=== PATIENT | male | born 1955 | race Caucasian/White ===

== ENCOUNTER → 2017-09-16 08:21 | Outpatient (CLI) | payer OTHER, SELFPAY ==
--- NOTE | 2017-09-16 08:22 | RAD_ITS ---
STUDY: X-RAY - ABDOMEN/PELVIS REASON FOR EXAM: Male, 62 years old. History of kidney stones. TECHNIQUE: Two AP supine views of the abdomen and pelvis. COMPARISON: Comparison is made with prior study dated August 01, 2017. FINDINGS: There is a moderate amount of colonic fecal material. The left-sided double-J stent catheter as been removed. Multiple calculi are seen in the left kidney. The previously seen calculus in the upper pole has decreased in size. There are calcified phleboliths in the pelvis. Normal visualized osseous structures. RAD/Abdomen Single View IMPRESSION: Residual left intrarenal calculi. Removal of the left double-J stent catheter. Electronically Signed: Usman Chávez MD at 11:10 EST Tel [phone], Service support ,
--- NOTE | 2017-09-16 09:20 | CT_ITS ---
STUDY: CT ABDOMEN AND PELVIS WITHOUT CONTRAST REASON FOR EXAM: Male, 62 years old. Left-sided flank pain and swelling. Recent lithotripsy. RADIATION DOSAGE (If Supplied By Facility): CTDIvol = ( 23.24 ) mGy, DLP = ( 1312.21 ) mGycm TECHNIQUE: Transaxial images were obtained from the dome of the diaphragm to the symphysis pubis without oral contrast, and without intravenous contrast. Sagittal and coronal images were reconstructed. Individualized dose optimization techniques were used for this CT. COMPARISON: None. FINDINGS: Minimal degree of increased markings in the posterior medial segment of the right lower lobe suggestive of scarring. There is a 6.8 mm noncalcified pleural-based nodule in the lateral aspect of the right middle lobe as seen on axial image #12. This may represent a focal area of scarring. Follow-up is recommended. There is also evidence of a 6 mm noncalcified nodule in the anterior portion of the right middle lobe as seen on axial image #1. Coronary artery calcification. There is decreased attenuation of the liver consistent with steatosis. Normal gallbladder and extrahepatic biliary system. Normal spleen. Normal pancreas. Nodular enlargement of the left adrenal gland suggestive of a adrenal adenoma. Punctate calcification in the lower pole calyx of the right kidney. Multiple left intrarenal calculi are seen. The largest measures 9 mm and is in the mid anterior pole. Mild degree of left hydronephrosis. There is evidence of a left periaortic ureteric stranding with mild dilatation of the left ureter worse in its proximal portion. No calcification is seen overlying the course of the ureter. There is a small hiatal hernia. Normal small intestine. There are multiple colonic diverticula consistent with diverticulosis. The appendix is visualized and appears normal. There is diffuse atherosclerotic calcification of the abdominal aorta, without a demonstrated aneurysm. Normal inferior vena cava. Normal retroperitoneum. Normal urinary bladder. There is a umbilical hernia containing fat. The neck of the hernia measures 1.7 cm. There are diffuse degenerative changes of the visualized lumbar spine. CT/Abdomen/Pelvis without Cont IMPRESSION: Multiple left intrarenal calculi. Mild left hydronephrosis and proximal left hydroureter with the moderate degree of perinephric stranding in the proximal portion of the ureter. No obstructive uropathy is seen at this time. Subcentimeters noncalcified nodules at the right lung base as described. Six-month follow-up is recommended. Electronically Signed: Usman Chávez MD at 9:46 EST Tel [phone], Service support ,
== END ==
PROVIDERS: Family Provider Specialist; PCP Specialist; Visit Provider Urology
DX: N20.0 Calculus of kidney (principal)
CPT/HCPCS: 74018; 74176

== ENCOUNTER → 2017-09-24 16:59 | Outpatient (CLI) | payer OTHER, SELFPAY ==
--- NOTE | 2017-09-24 17:02 | CT_ITS ---
STUDY: CT CHEST WITHOUT CONTRAST REASON FOR EXAM: Male, 62 years old. Right-sided lung nodule seen on recent CT scan of the abdomen and pelvis. RADIATION DOSAGE (If Supplied By Facility): CTDIvol = ( 20.72 ) mGy, DLP = ( 778.43 ) mGycm TECHNIQUE: Transaxial imaging was performed without the administration of intravenous contrast material. Individualized dose optimization techniques were used for this CT. COMPARISON: Correlation is made with the recent CT scan of the abdomen and pelvis of 09/16/2017. FINDINGS: There again is a 7 mm noncalcified nodule in the right middle lobe seen on image 132 series 4 unchanged since the prior examination. There is a 2 mm pleural-based nodule in the right lung apex seen on image 33 series 4. There is another small pleural-based measuring about 6 mm again unchanged. There is minimal stranding/scarring in the medial segment of the right lower lobe. No focal infiltrate is seen. Nodule in the right middle lobe seen on image 155 series 4 There is no demonstrated pleural effusions. Normal heart and pericardium. There are calcifications of the coronary arteries. There are few mediastinal nodes in the aortopulmonic window, the largest measures about 1.2 cm however it contains central fat. Additional subcentimeter nodes are seen. There is no evidence of adenopathy on this noncontrast examination. Normal hilar regions. Normal unenhanced pulmonary arteries. There is atherosclerotic calcification of the aortic arch and descending thoracic aorta. There are multi-level degenerative changes of the thoracic spine. The visualized portions of the upper abdomen demonstrate again mild left hydronephrosis. There are partially visualized left renal calcifications/nonobstructing stones. CT/Chest without Contrast IMPRESSION: Few small right middle and upper lobes pulmonary nodules as described above unchanged since the prior examination. In the absence of clinical history of cancer, follow-up examination in 6 months is recommended. No focal infiltrate is seen. Nonobstructing left renal stones and mild left hydronephrosis unchanged. Electronically Signed: Seferino Snider MD at 1:32 EST Tel , Service support ,
== END ==
PROVIDERS: Family Provider Specialist; PCP Specialist; Visit Provider Urology
DX: R91.1 Solitary pulmonary nodule (principal)
CPT/HCPCS: 71250

== ENCOUNTER → 2017-12-23 13:28 | Outpatient (CLI) | payer OTHER, SELFPAY ==
--- NOTE | 2017-12-23 13:31 | CT_ITS ---
STUDY: CT CHEST WITHOUT CONTRAST REASON FOR EXAM: Male, 62 years old. 3 month follow up lung nodule. RADIATION DOSAGE (If Supplied By Facility): CTDIvol = ( 19.84 ) mGy, DLP = ( 773.51 ) mGycm TECHNIQUE: Transaxial imaging was performed without the administration of intravenous contrast material. Multiplanar coronal and sagittal images were reformatted. Individualized dose optimization techniques were used for this CT. COMPARISON: CT of the chest, September 26, 2017. FINDINGS: The lungs are well expanded. There is a 5 mm soft tissue nodule in the anterior aspect of the right middle lobe just below the horizontal fissure. This is best seen on image 68 of series 4. Also in the right middle lobe is a 5 x 4 mm pleural-based soft tissue density best seen on image 79. No masses are seen. There is no acute infiltrate. There is no demonstrated pleural abnormality. Normal heart and pericardium. There are calcifications of the coronary arteries. There are numerous nonspecific subcentimeter mediastinal lymph nodes. Normal hilar regions. Normal unenhanced pulmonary arteries. There is atherosclerotic calcification of the aortic arch with tortuosity and elongation of the aortic arch and descending thoracic aorta. There are multi-level degenerative changes of the thoracic spine. There is a 2 mm calcification in the upper pole of left kidney. The visualized abdomen is otherwise unremarkable. CT/Chest without Contrast IMPRESSION: 1. Stable right middle lobe nodules. According to revised Fleischner criteria, a CT one year from the previous exam should be considered. 2. Left renal calculus. 3. Atherosclerotic changes of coronary arteries and aorta. 4. No major interval change. Electronically Signed: Gilson Vega DO at 17:04 EDT Tel [phone], Service support ,
== END ==
PROVIDERS: Family Provider Family Medicine; PCP Family Medicine; Visit Provider Internal Medicine Pulmonary Disease
DX: R91.8 Other nonspecific abnormal finding of lung field (principal)
CPT/HCPCS: 71250

== ENCOUNTER → 2020-04-06 15:42 | Outpatient (CLI) | payer OTHER, SELFPAY ==
--- NOTE | 2020-04-06 15:50 | CT_ITS ---
STUDY: CT CHEST WITHOUT CONTRAST REASON FOR EXAM: Male, 64 years old. PULMONARY NODULE RADIATION DOSAGE (If Supplied By Facility): CTDIvol = ( 18.78 ) mGy, DLP = ( 704.03 ) mGycm TECHNIQUE: Transaxial imaging was performed without the administration of intravenous contrast material. Individualized dose optimization techniques were used for this CT. COMPARISON: CT of the chest 12/23/2017 FINDINGS: There is minor interstitial thickening in the right lower lobe. There is a nodular density in the right middle lobe measuring approximately 6 mm in size. Is a second smaller pleural-based density in the right middle lobe measuring approximately 4 to 5 mm in size. There is no demonstrated pleural abnormality. The heart is normal size and there is multivessel coronary artery calcification Normal mediastinum. Normal hilar regions. Normal unenhanced pulmonary arteries. For cirrhotic changes of the aorta without evidence for aneurysm. Dorsal spine demonstrates degenerative changes There is no demonstrated abnormality of the visualized upper abdomen. The nodules are stable in size when compared with prior exam. CT/Chest without Contrast IMPRESSION: Stable appearance to subcentimeter nodules in the right middle lobe since previous exam. Recommend follow-up imaging as per FLEISCHNER Society criteria if clinically warranted ASHD.. No acute abnormalities. Electronically Signed: Preet Lawton MD at 22:47 EDT , Service support ,
== END ==
PROVIDERS: PCP Family Medicine; Referring Provider Family Medicine; Visit Provider Family Medicine
DX: R91.1 Solitary pulmonary nodule (principal)
CPT/HCPCS: 71250

== ENCOUNTER 2021-11-15 21:15 | Inpatient (IN) | payer OTHER, MEDICARE, SELFPAY ==
[2021-11-15 21:16] VITALS: BP 199/87; PULSE 84; RESP 18; TEMP 36.6; O2SAT 98; BMI 33.9
--- NOTE | 2021-11-15 21:27 | EKG12_ITS ---
Test Reason : DYSRHYTHMIA Blood Pressure : / mmHG Vent. Rate : 069 BPM Atrial Rate : 069 BPM P-R Int : 164 ms QRS Dur : 106 ms QT Int : 404 ms P-R-T Axes : 058 055 057 degrees QTc Int : 432 ms Normal sinus rhythm Normal ECG Confirmed by ERLINDA DENNISON, ALEKS ([id number]), photo editor RADHA ROSALES ([id number]) on 11/17/2021 2:15:05 PM Referred By: ARELIS Confirmed By:PARAMJIT COFFEY MD
[2021-11-15 21:44] VITALS: BMI 35.6
[2021-11-15 21:47] VITALS: BP 174/77; PULSE 72; RESP 19; O2SAT 99
--- NOTE | 2021-11-15 21:48 | RAD_ITS ---
STUDY: X-RAY CHEST REASON FOR EXAM: Male, 66 years old. altered mental status TECHNIQUE: 2 portable upright frontal views. COMPARISON: No comparison chest radiographs. Correlation is made with chest CT of 04/06/2020. FINDINGS: The lungs are clear and expanded. There is no demonstrated pleural abnormality. Heart size is upper normal. Normal pulmonary vasculature. Thoracic aorta is minimally elongated and calcific. Degenerative spurring noted in the lower cervical spine and thoracic spine. There is no demonstrated abnormality of the visualized soft tissue structures of the upper abdomen. RAD/Chest 1 View (Portable) IMPRESSION: No acute cardiopulmonary disease process identified. Electronically Signed: Joe Corona MD at 22:23 EDT ,
[2021-11-15 21:53] LABS: Bacteria 0 SEEN /hpf (None Seen); Mucous, Urine 0 SEEN /hpf (<or=2+); Red Blood Cells-Urine 0 SEEN /hpf (0-5); Squamous Epithelial Cells - UA 0 SEEN /hpf (0-5); White Blood Cells 0 SEEN /hpf (0-5)
[2021-11-15 21:54] LABS: Absolute Lymphocyte Count 2.52 X10^3/uL (0.83-4.51); Absolute Neutrophil Count 5.1 X10^3/uL (2.0-7.7); Basophil# 0.07 X10^3/uL; Basophil% 0.8 % (0-1); Eosinophil# 0.18 X10^3/uL; Eosinophils% 2.1 % (0-5); Hematocrit 48.2 % (40-54); Hemoglobin 16.3 g/dL (13.0-16.5); Lymphocyte # 2.52 X10^3/ul (0.83-4.51); Mean Corp Hgb Conc 33.8 g/dL (32-36); Mean Corpuscular Hgb 27.7 pg (27.0-32.0); Mean Platelet Vol. 10.8 fl (6.2-12.0); Monocyte# 0.54 X10^3/uL; Monocyte% 6.4 % (0-10); NRBC Flagged by Analyzer 0 % (0-5); Neutrophil # 5.07 X10^3/uL (2.7-7.7); Neutrophil % 60.5 % (47-70); Platelet Count 276 K/mm3 (150-450); RBC Distribution Width CV 14.7 % (11.6-14.6); RBC Distribution Width SD 43.9 fl (35.1-43.9); Red Blood Count 5.88 M/mm3 (4.6-6.2); White Blood Count 8.4 K/mm3 (4.4-11.0)
[2021-11-15 21:55] LABS: Bedside Glucose 300 mg/dL (74-106)
[2021-11-15 22:03] LABS: Color, Urine Yellow (Yellow); Glucose, Dipstick 1000 mg/dl (Normal); Ketone-Dipstick 5 mg/dl (Negative); Leukocyte Esterase-Dipstick Negative /ul (Negative); Nitrite-Dipstick Negative (Negative); Occult Blood-Urine Negative /ul (Negative); Protein-Dipstick Negative (Negative); Specific Gravity, Urine 1.015 (1.002-1.030); Urine Bilirubin Dipstick Negative (Negative); Urine Clarity Clear (Clear); Urine Urobilinogen Normal (Normal)
[2021-11-15 22:16] LABS: ALB/GLOB Ratio 0.9 RATIO (0.9-2.4); AST(SGOT) 32 U/L (15-37); Alanine Aminotransfer ALT/SGPT 41 U/L (16-61); Albumin, Serum 4.2 g/dL (3.2-5.0); Alkaline Phosphatase 72 U/L (45-117); Anion Gap 6 (5-15); BUN 26 mg/dL (7-18); BUN/Creat Ratio 17.9 RATIO (10-20); Calcium,Total 9.8 mg/dL (8.5-10.1); Chloride 104 mmol/L (98-107); Creatinine, Serum 1.45 mg/dL (0.70-1.30); EST Glomerular Filtration Rate 52 mL/min (>60); Est Glom Filt Rate - Afr Amer 63 mL/min (>60); Estimated Creatinine Clearance 55.75 ml/min; Globulin 4.7 g/dL (2.2-4.2); Glucose 295 mg/dL (74-106); Potassium 3.4 mmol/L (3.5-5.1); Protein, Total 8.9 g/dL (6.4-8.2); Sodium Level 137 mmol/L (136-145); Troponin-I HS 9 pg/mL (3.0-78.0)
--- NOTE | 2021-11-15 22:50 | CT_ITS ---
EXAM: CT HEAD WITHOUT INTRAVENOUS CONTRAST CLINICAL INDICATION: tia TECHNIQUE: Multiple axial images were obtained of the head without intravenous contrast. DLP: 829.85 mGy-cm and CTDI: 44.[address] exam was performed using one or more of the following dose reduction techniques: automated exposure control, adjustment of the mA and/or kV according to patient size, and/or use of iterative reconstruction technique. This report was created using [employer] report generation technology. COMPARISON: None. FINDINGS: BRAIN AND EXTRA-AXIAL SPACES: Minimal atrophy with minimal patchy chronic small vessel ischemic changes in the deep white matter tracts. There is a small old lacunar infarction within the left thalamus. No intra- or extra-axial hemorrhage. No intracranial mass or mass effect. Posterior fossa structures are unremarkable. No hydrocephalus. Basal cisterns are patent. BONES/JOINTS: Unremarkable. No discrete lytic or blastic abnormalities. VASCULATURE: Vascular calcification is present. Middle cerebral arteries are not hyperdense. LYMPH NODES: A 21 x 13 mm ovoid and slightly lobulated soft tissue nodule is seen within the right parotid gland. 2 adjacent soft tissue nodules measuring up to 13 mm in diameter are seen within the left parotid gland. These nodules are most likely due to enlarged intraparotid lymph nodes. SINUSES: Mild-moderate mucosal thickening noted within the left maxillary antrum, which is smaller than the right. Additional mucosal thickening noted within the anterior ethmoid air cells and extending into the inferior frontal sinuses. MASTOID AIR CELLS: Unremarkable. Clear. ORBITS: Visualized globes, extraocular muscles, optic nerves and retrobulbar fat appear unremarkable. CT/Brain/Head without Contrast IMPRESSION: Minimal atrophy. 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 No acute intracranial abnormality. Left maxillary, ethmoid and frontal sinus mucosal disease. Enlarged intraparotid lymph nodes noted bilaterally. Electronically Signed: Joe Corona MD at 0:27 EDT ,
--- NOTE | 2021-11-15 22:51 | EDS_ITS ---
HPI History of Present Illness Chief Complaint: Neuro S/Sx Narrative Narrative: 66-year-old male presenting with left-sided weakness of both his arm and his leg since Saturday. He reports that Saturday he could not walk. He reports possibly having difficulty talking. His family states he is slow to respond but not exactly having slurred speech. He states that on Saturday he could not stand up and walk at all and over the course of time has been able to ambulate more and more. He was able to ambulate into the ER. He denies chest pain or shortness of breath. He denies abdominal pain. He has nausea vomiting. Denies headache, visual changes. No neck pain. PFSH PFSH Medical History Anxiety Diabetes Hypertension Kidney stones OCD (obsessive compulsive disorder) On home oxygen therapy Smoker Home Medications amlodipine-benazepril [Lotrel 10-20 MG Capsule] 1 capsule PO DAILY 07/23/17 [History Last Taken 07/26/17 06:30] celecoxib 200 mg PO BID 07/23/17 [History Last Taken Unknown] clopidogrel 75 mg PO DAILY 07/23/17 [History Last Taken 07/21/17 07:00] fenofibric acid (choline) [Fenoglide] 135 mg PO DAILY 07/23/17 [History Last Taken Unknown] hydrochlorothiazide 25 mg PO DAILY 07/23/17 [History Last Taken Unknown] hydrocodone-acetaminophen [Stanwood 5-325 Tablet] 1 ea PO TID PRN 07/23/17 [History Last Taken Unknown] metformin 1,000 mg PO BIDCM 07/23/17 [History Last Taken Unknown] paroxetine HCl 20 mg PO DAILY 07/23/17 [History Last Taken Unknown] pregabalin [Lyrica] 100 mg PO TID 07/23/17 [History Last Taken Unknown] propranolol 60 mg PO BID 07/23/17 [History Last Taken 07/26/17 06:30] tramadol 100 mg PO DAILY 07/23/17 [History Last Taken Unknown] atorvastatin 80 mg PO DAILY 11/15/21 [History Last Taken Unknown] dapagliflozin [Farxiga] 10 mg PO DAILY 11/15/21 [History Last Taken Unknown] esomeprazole magnesium [Nexium 24HR] 20 mg PO DAILY 11/15/21 [History Last Taken Unknown] glimepiride 2 mg PO DAILY 11/15/21 [History Last Taken Unknown] sitagliptin [Januvia] 100 mg PO DAILY 11/15/21 [History Last Taken Unknown] Allergy/AdvReac Type Severity Reaction Status Date / Time aspirin AdvReac Vomiting Verified 11/15/21 21:18 Social History Smoking Status: Current every day smoker tobacco type: cigarettes ROS ROS ED Constitutional Constitutional ED: Denies chills or fever(s) Eyes Eyes: Denies blurry vision or change in vision ENT ENT ED: Denies rhinorrhea or sore throat Cardiovascular Cardiovascular: Denies chest pain or palpitations Respiratory/Chest Respiratory/Chest: Denies cough, dyspnea or sputum Gastrointestinal Gastrointestinal: Denies abdominal pain, nausea or vomiting Genitourinary Genitourinary ED: Denies dysuria or urinary frequency Musculoskeletal Musculoskeletal: Denies myalgias Integumentary Denies abscess or rash Neurologic Neurologic: Reports other Details: Left arm and leg weakness. Slow to answer questions. Psychiatric Psychiatric: Denies anxiety or depression EXAM Physical Exam Const Vital Signs: 11/15/21 21:16 11/15/21 21:47 11/15/21 23:35 Temperature 97.8 F Temperature Source Temporal Pulse Rate 84 72 80 Respiratory Rate 18 19 H 16 Blood Pressure 199/87 H 174/77 H 170/80 H Blood Pressure Mean 124 109 110 Pulse Ox 98 99 95 Oxygen Delivery Method Room Air Room Air Room Air Positive well nourished General Appearance ED: NAD HEENT Reports moist mucous membranes atraumatic Eyes PERRL and EOMs intact bilaterally Resp normal respiratory effort and clear to auscultation bilaterally Cardio Rate: regular rate Rhythm: regular rhythm GI normal to inspection, nondistended, normoactive bowel sounds Extremity normal to inspection General Extremety ED: Negative for deformity or tenderness General Extremity: Negative for deformity Neuro oriented x3 and CN's II-XII intact bilaterally Neuro Narrative: NIH stroke scale score of 0 Sensorium / Orientation: alert Psych mental status grossly normal Skin Lesions: no lesions Rashes: no rashes STROKE Vital Signs/Narrative: Vital Signs Temp Pulse Resp BP Pulse Ox 11/15/21 23:35 80 16 170/80 H 95 11/15/21 21:47 72 19 H 174/77 H 99 11/15/21 21:16 97.8 F 84 18 199/87 H 98 Inital Vital Signs reviewed: Yes MDM MDM MDM Narrative Medical decision making narrative: Patient presenting with concern of TIA. [id number] glucose is 300. On Saturday he was unable to ambulate secondary to weakness in the left arm and left leg. He states this is slowly improved. There is no reported slurred speech but the patient has been slow to answer questions. His NIH stroke scale score here is 0. He is outside of the window for any sort of TPA or otherwise. I got him out of bed and walked him down the hallway and he looked stable. He had reported earlier that he was dragging his foot last couple days. CBC is within normal limits. Creatinine is 1.45 without comparison. Glucose 295 without anion gap. Potassium slightly low 3.4. Urinalysis is negative. Chest x-ray on my interpretation is no acute cardiopulmonary process and radiologist agree. EKG on my interpretation shows a normal sinus rhythm ventricular to 69 bpm without sign of ischemic change or dysrhythmia. CT of the brain shows an old lacunar infarct in the left thalamus however patient states he does not have a history of stroke he only has had a TIA. Given his recent neurologic deficits that are resolving and no history of stroke with stroke found on CT I think he needs to be admitted for MRI. He is currently on Plavix. He states that he cannot take aspirin presently, short of breath. Impression: 1. Stroke like symptoms 2. Hyperglycemia Lab Data Attestation: I reviewed the patient's lab results. Labs: Laboratory Results - last 24 hr 11/15/21 11/15/21 11/15/21 21:30 21:30 21:39 WBC 8.4 RBC 5.88 Hgb 16.3 Hct 48.2 MCV 82.0 MCH 27.7 MCHC 33.8 RDW Std Deviation 43.9 RDW Coeff of [place] 14.7 H Plt Count 276 MPV 10.8 Immature Gran % (Auto) 0.200 Neut % (Auto) 60.5 Lymph % (Auto) 30.0 [place] % (Auto) 6.4 Eos % (Auto) 2.1 Baso % (Auto) 0.8 Absolute Neuts (auto) 5.1 Absolute Lymphs (auto) 2.52 Nucleated RBC % 0 Sodium 137 Potassium 3.4 L Chloride 104 Carbon Dioxide 27.0 Anion Gap 6 BUN 26 H Creatinine 1.45 H Estim Creat Clear Calc 55.75 Est GFR (MDRD) Af Amer 63 Est GFR (MDRD) Non-Af 52 L BUN/Creatinine Ratio 17.9 Glucose 295 H Calcium 9.8 Total Bilirubin 0.50 AST 32 ALT 41 Alkaline Phosphatase 72 Troponin I High Sens 9 Total Protein 8.9 H Albumin 4.2 Globulin 4.7 H Albumin/Globulin Ratio 0.9 Urine Color Yellow Urine Clarity Clear Urine pH 5.0 Ur Specific [place] 1.015 Urine Protein Negative Urine Glucose (UA) 1000 H Urine Ketones 5 H Urine Occult Blood Negative Urine Nitrite Negative Urine Bilirubin Negative Urine Urobilinogen Normal Ur Leukocyte Esterase Negative Urine RBC 0 SEEN Urine WBC 0 SEEN Ur Squamous Epith Cells 0 SEEN Urine Bacteria 0 SEEN Urine Mucus 0 SEEN POC Glucose 11/15/21 21:42 WBC RBC Hgb Hct MCV MCH MCHC RDW Std Deviation RDW Coeff of [place] Plt Count MPV Immature Gran % (Auto) Neut % (Auto) Lymph % (Auto) [place] % (Auto) Eos % (Auto) Baso % (Auto) Absolute Neuts (auto) Absolute Lymphs (auto) Nucleated RBC % Sodium Potassium Chloride Carbon Dioxide Anion Gap BUN Creatinine Estim Creat Clear Calc Est GFR (MDRD) Af Amer Est GFR (MDRD) Non-Af BUN/Creatinine Ratio Glucose Calcium Total Bilirubin AST ALT Alkaline Phosphatase Troponin I High Sens Total Protein Albumin Globulin Albumin/Globulin Ratio Urine Color Urine Clarity Urine pH Ur Specific [place] Urine Protein Urine Glucose (UA) Urine Ketones Urine Occult Blood Urine Nitrite Urine Bilirubin Urine Urobilinogen Ur Leukocyte Esterase Urine RBC Urine WBC Ur Squamous Epith Cells Urine Bacteria Urine Mucus POC Glucose 300 H Radiography Diagnostic Testing: Clinical Impression(s) from Imaging Studies Chest X-Ray 11/15/21 21:48 IMPRESSION: No acute cardiopulmonary disease process identified. Electronically Signed: Joe Corona MD at 22:23 EDT , Brain CT 11/15/21 22:50 IMPRESSION: Minimal atrophy. 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 No acute intracranial abnormality. Left maxillary, ethmoid and frontal sinus mucosal disease. Enlarged intraparotid lymph nodes noted bilaterally. Electronically Signed: Joe Corona MD at 0:27 EDT , Discharge Plan Triage Chief Complaint: Neuro S/Sx ED Provider: Nilesh Luis Dx/Rx/DC Orders Prescriptions: No Action celecoxib 200 MG capsule 200 mg PO BID RF: 0 hydrocodone-acetaminophen [Stan[place]] 1 EACH tablet 1 ea PO TID PRN (Reason: Pain) RF: 0 propranolol 60 MG tablet 60 mg PO BID RF: 0 clopidogrel 75 MG tablet 75 mg PO DAILY RF: 0 tramadol 50 MG tablet 100 mg PO DAILY RF: 0 paroxetine HCl 20 MG tablet 20 mg PO DAILY RF: 0 metformin 1,000 MG tablet 1,000 mg PO BIDCM RF: 0 hydrochlorothiazide 25 MG tablet 25 mg PO DAILY RF: 0 amlodipine-benazepril [Lotrel] 1 CAPSULE capsule 1 capsule PO DAILY RF: 0 pregabalin [Lyrica] 100 MG capsule 100 mg PO TID RF: 0 fenofibric acid (choline) [Trilipix] 135 MG capsule,delayed release(DR/EC) 135 mg PO DAILY RF: 0 atorvastatin 80 mg Tablet 80 mg PO DAILY RF: 0 esomeprazole magnesium [Nexium 24HR] 20 mg Capsule,Delayed Release(Dr/Ec) 20 mg PO DAILY RF: 0 Farxiga 10 mg Tablet 10 mg PO DAILY RF: 0 glimepiride 2 mg Tablet 2 mg PO DAILY RF: 0 Januvia 100 mg Tablet 100 mg PO DAILY RF: 0 Primary Care Provider: Trey Oreilly
[2021-11-15 23:35] VITALS: BP 170/80; PULSE 80; RESP 16; O2SAT 95
[2021-11-16] VITALS (20 sets, daily range): BP systolic 169–208; BP diastolic 64–97; PULSE 64–89; RESP 12–18; TEMP 36.4–36.8; O2SAT 95–98; BMI 34.0
--- NOTE | 2021-11-16 01:18 | PCM.HP.STD ---
[facility] - General General Date of Admission: 11/16/21 HPI Narrative SIDRA UMANZOR, is a 66 M with a significant for diabetes mellitus; anxiety disorder on propranolol; R knee pain on, Lyrica, tramadol and [place], and follows up with pain management; hypertension; OCD; and anxiety disorder who presents to emergency department with weakness of his left upper and left lower extremities. Also he has slowness in his speech. He does not have slurry speech. His symptoms started 2 days before presentation. And his symptoms has been improving. When his daughter became aware of patient's symptoms she convinced patient to come to the hospital. Emergent department doctor reported walking with patient and seen patient dragging his left foot. [facility] Medical History Anxiety Diabetes Hypertension Kidney stones OCD (obsessive compulsive disorder) On home oxygen therapy Smoker Home Medications amlodipine-benazepril [Lotrel 10-20 MG Capsule] 1 capsule PO DAILY 07/23/17 [History Last Taken 07/26/17 06:30] celecoxib 200 mg PO BID 07/23/17 [History Last Taken Unknown] clopidogrel 75 mg PO DAILY 07/23/17 [History Last Taken 07/21/17 07:00] fenofibric acid (choline) [Fenoglide] 135 mg PO DAILY 07/23/17 [History Last Taken Unknown] hydrochlorothiazide 25 mg PO DAILY 07/23/17 [History Last Taken Unknown] hydrocodone-acetaminophen [[place] 5-325 Tablet] 1 ea PO TID PRN 07/23/17 [History Last Taken Unknown] metformin 1,000 mg PO BIDCM 07/23/17 [History Last Taken Unknown] paroxetine HCl 20 mg PO DAILY 07/23/17 [History Last Taken Unknown] pregabalin [Lyrica] 100 mg PO TID 07/23/17 [History Last Taken Unknown] propranolol 60 mg PO BID 07/23/17 [History Last Taken 07/26/17 06:30] tramadol 100 mg PO DAILY 07/23/17 [History Last Taken Unknown] atorvastatin 80 mg PO DAILY 11/15/21 [History Last Taken Unknown] dapagliflozin [Farxiga] 10 mg PO DAILY 11/15/21 [History Last Taken Unknown] esomeprazole magnesium [Nexium 24HR] 20 mg PO DAILY 11/15/21 [History Last Taken Unknown] glimepiride 2 mg PO DAILY 11/15/21 [History Last Taken Unknown] sitagliptin [Januvia] 100 mg PO DAILY 11/15/21 [History Last Taken Unknown] Allergy/AdvReac Type Severity Reaction Status Date / Time aspirin AdvReac Vomiting Verified 11/15/21 21:18 Family History Other Heart disease Surgical History H/O hernia repair Social History Smoking Status: Current every day smoker tobacco type: cigarettes ROS ROS Narrative Constitutional: Denies fever, chills, fatigue, anorexia and change in weight Eyes: Denies blurry vision, change in eye color, change in vision, discharge from eye(s), double vision, erythema, eye pain, loss of vision or other HEENT: Denies abnormal hearing, dysphagia, ear pain, epistaxis, headache(s), hearing loss, nasal congestion, nasal discharge, post nasal drip, sinus pressure, sore throat or other Cardiovascular: Denies chest pain or palpitations. Denies dyspnea on exertion, orthopnea and paroxysmal nocturnal dyspnea Respiratory/Chest: Denies cough, excessive phlegm production, shortness of breath with exertion and wheezing Gastrointestinal: Denies abdominal pain, coffee ground emesis, constipation, diarrhea, dyspepsia, hematemesis, hematochezia, loose stools, melena, nausea, vomiting or other Genitourinary: Denies burning urination, difficulty urinating, dysuria, hematuria, nocturia, urinary frequency, urinary hesitancy, urinary incontinence, urinary urgency or other Musculoskeletal: Reports chronic right knee pain for which he takes tramadol, [place], Lyrica and follows up with pain management. Denies back pain, myalgias, neck pain or other Neurologic: Reports slow speech. Reports left upper extremity weakness. Reports left lower extremity weakness. Denies confusion, disequilibrium, dizziness, headache(s), numbness, paresthesias, seizure-like activity, seizures, syncope, tingling, tremor(s) or other Psychiatric: Reports anxiety. Denies homicidal ideation, suicidal ideation or other Endocrinology: Denies change in body appearance, cold intolerance, excessive sweating, heat intolerance, polydipsia, polyuria or other Hematologic/Lymphatic: Denies anemia, easy bleeding, easy bruising, lymphadenopathy or other Integumentary: Denies rashes Allergic/Immunologic: Denies rhinitis, hives, eczema, or other Vital Signs Vital Signs Vital Signs: 11/15/21 21:16 11/15/21 21:47 11/15/21 23:35 Temperature 97.8 F Temperature Source Temporal Pulse Rate 84 72 80 Respiratory Rate 18 19 H 16 Blood Pressure 199/87 H 174/77 H 170/80 H Blood Pressure Mean 124 109 110 Pulse Ox 98 99 95 Oxygen Delivery Method Room Air Room Air Room Air Weight Weight: 119.2 kg Body Mass Index (BMI) 35.6 Physical Exam Narrative Physical exam: General: Well-nourished, well-developed. Head: Normocephalic, atraumatic, no tenderness Eyes: Vision is grossly intact. EOMI ENT, no trauma, moist mucous membranes, no rhinorrhea Neck: Nontender, full range of motion, no spinal tenderness, deformities, step-off CVS: Regular rate and rhythm. S1-S2 present. No murmur, gallop or rub. Respiratory : clear to auscultation bilaterally, chest wall nontender, no wheezing Abdomen: Soft, nontender, nondistended, normal bowel sounds, no masses : Deferred Back: Nontender, no CVA tenderness, no midline spinal tenderness, deformities, step-offs Extremities: Nontender full range of motion, no trauma Skin: Normal color, no trauma, abrasions Neuro: Alert, oriented, cranial nerves II through XII grossly intact except patient does not keep his eyes straight to check pupillary reflex and accommodation. Facial droop to the left side. Strength in left upper extremity and left lower extremity 4 out of 5. Strength in right upper and right lower extremity 5 out of 5. No dysmetria with [id number]-gw-[id number] test and rvgs-gu-[id number] test. No hyperreflexia throughout. Psychiatry: Normal mood. Normal affect. Not depressed. Not anxious. Results Lab / Micro Data Result Diagrams: 11/15/21 21:30 11/15/21 21:30 Labs: Laboratory Results - last 24 hr 11/15/21 21:30: WBC 8.4, RBC 5.88, Hgb 16.3, Hct 48.2, MCV 82.0, MCH 27.7, MCHC 33.8, RDW Std Deviation 43.9, RDW Coeff of [place] 14.7 H, Plt Count 276, MPV 10.8, Immature Gran % (Auto) 0.200, Neut % (Auto) 60.5, Lymph % (Auto) 30.0, Glades % (Auto) 6.4, Eos % (Auto) 2.1, Baso % (Auto) 0.8, Absolute Neuts (auto) 5.1, Absolute Lymphs (auto) 2.52, Nucleated RBC % 0 11/15/21 21:30: Sodium 137, Potassium 3.4 L, Chloride 104, Carbon Dioxide 27.0, Anion Gap 6, BUN 26 H, Creatinine 1.45 H, Estim Creat Clear Calc 55.75, Est GFR (MDRD) Af Amer 63, Est GFR (MDRD) Non-Af 52 L, BUN/Creatinine Ratio 17.9, Glucose 295 H, Calcium 9.8, Total Bilirubin 0.50, AST 32, ALT 41, Alkaline Phosphatase 72, Troponin I High Sens 9, Total Protein 8.9 H, Albumin 4.2, Globulin 4.7 H, Albumin/Globulin Ratio 0.9 11/15/21 21:39: Urine Color Yellow, Urine Clarity Clear, Urine pH 5.0, Ur Specific [place] 1.015, Urine Protein Negative, Urine Glucose (UA) 1000 H, Urine Ketones 5 H, Urine Occult Blood Negative, Urine Nitrite Negative, Urine Bilirubin Negative, Urine Urobilinogen Normal, Ur Leukocyte Esterase Negative, Urine RBC 0 SEEN, Urine WBC 0 SEEN, Ur Squamous Epith Cells 0 SEEN, Urine Bacteria 0 SEEN, Urine Mucus 0 SEEN 11/15/21 21:42: POC Glucose 300 H Radiology Impression Chest X-Ray 11/15/21 21:48 IMPRESSION: No acute cardiopulmonary disease process identified. Electronically Signed: Joe Corona MD at 22:23 EDT , Brain CT 11/15/21 22:50 IMPRESSION: Minimal atrophy. 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 No acute intracranial abnormality. Left maxillary, ethmoid and frontal sinus mucosal disease. Enlarged intraparotid lymph nodes noted bilaterally. Electronically Signed: Joe Corona MD at 0:27 EDT , Assessment & Plan Assessment/Plan (1) Stroke-like symptoms: PLAN: Strokelike symptoms serial NINDS NIH Scale ordered CT head was visualized and independently interpreted and agree with radiologist impression above. Lipid profile and A1c ordered. Physical therapy, occupational therapy and speech therapy to work with patient. N.p.o. until bedside swallow eval. Patient reports allergy to aspirin. Reportedly he has hives and difficulty breathing with aspirin. Patient is on Plavix. Patient is unsure why he is on Plavix but daughter who was at the bedside on presentation at the ED thinks that Plavix was started because of previous history of blood clots. On high intensity statin which has been continued. Outside window of permissive hypertension. MRI/MRA of head; brain; and neck. Echocardiogram ordered. Hypertension Blood pressure is not within goal Home blood pressure meds continued. As needed hydralazine ordered. Trend blood pressure and adjust blood pressure medications. Diabetes mellitus Patient with hyperglycemia on presentation. Fingerstick blood sugar on presentation was 300 . Glucose was 295 on BMP. Hold Metformin. Glimepiride and dapagliflozin continued Accu-Chek QA CHS with correction scale insulin ordered. Tobacco abuse Counseled Nicotine patch prescribed Elevated creatinine Creatinine on presentation was 1.45. BUN is 26 . No previous Hospital records to compare with. Review of community records showed creatinine of 1.14 and BUN of 22 but that was on 12/10/2016. This could mean CKD or TINA. Trend BMP. Hypokalemia Potassium of 3.4 on presentation Replacement ordered. Trend BMP. DVT prophylaxis Subcutaneous Lovenox ordered. Charges/Coding Visit Charges OBSV E&M: 33610 Initial observation care L3
--- NOTE | 2021-11-16 03:46 | ECHOD_ITS ---
Reason For Study: TIA/CVA Procedure This was a 2D Doppler, Color Flow transthoracic echocardiogram. The study was technically difficult. Due to body habitus. Exam performed portable in patient room. Left Ventricle The estimated ejection fraction is 65 %. No evidence for diastolic dysfunction. No regional wall motion abnormalities noted. Right Ventricle Normal RV size. Normal systolic function. Atria Normal left atrium. Normal right atrium. No doppler evidence for ASD. Mitral Valve There is no mitral valve stenosis. No mitral valve insufficiency. Tricuspid Valve There is no tricuspid stenosis. Unable to estimate RV systolic pressure due to inadequate jet, pulmonary artery pressure probably normal. Aortic Valve Mild diffuse aortic valve thickening. Mild aortic stenosis. No aortic valve insufficiency. Pulmonic Valve There is no pulmonic valvular stenosis. No pulmonic valve insufficiency. Great Vessels Normal aortic root. Pericardium/Pleural No pericardial effusion. Medication Performed a rapid injection of agitated mix of 9 cc saline and 1cc air to assess for atrial septal defect. MMode/2D Measurements & Calculations LVIDd: 4.5 cm IVSd: 1.3 cm LVOT diam: 2.2 cm LVIDs: 2.6 cm LVPWd: 1.3 cm RVDd: 4.2 cm FS: 42.5 % LVOT area: 3.8 cm2 Ao root diam: 3.3 cm LAV(MOD-bp): 64.5 ml LA A4 area: 18.0 cm2 LAV(MOD-bp) Indexed: 27.5 ml/m2 LAV(MOD-sp2): 77.4 ml LAV(MOD-sp4): 50.8 ml LA dimension(2D): 3.6 cm RA A4 area: 16.6 cm2 Time Measurements MV dec time: 0.25 sec Doppler Measurements & Calculations MV E max luis fernando: 55.4 cm/sec Lat Peak E' Luis Fernando: 10.5 cm/sec Med Peak E' Luis Fernando: 7.9 cm/sec MV A max luis fernando: 83.7 cm/sec E/E' lat: 5.3 E/E' med: 7.1 MV E/A: 0.66 Ao V2 max: 233.8 cm/sec LV V1 max: 115.8 cm/sec SV(LVOT): 102.5 ml Ao max P.9 mmHg LV V1 max P.2 mmHg Ao V2 mean: 149.5 cm/sec LV V1 mean P.5 mmHg Ao mean P.2 mmHg LV V1 mean: 73.7 cm/sec Ao V2 VTI: 44.5 cm LV V1 VTI: 26.7 cm JAZMYNE(I,D): 2.3 cm2 JAZMYNE(V,D): 1.9 cm2 PA V2 max: 117.7 cm/sec ECHO/Echo Complete Interpretation Summary The estimated ejection fraction is 65 %. No evidence for diastolic dysfunction. Mild aortic stenosis. Ordering Physician: Dakota Taylor Referring Physician: Trey Oreilly Performed By: Kavita Dukes RDCS, RVT
--- NOTE | 2021-11-16 03:46 | MRI_ITS ---
STUDY: MRA NECK WITHOUT CONTRAST REASON FOR EXAM: Male, 66 years old. CVA, left weakness, slowed speech TECHNIQUE: Source images were obtained, MIPs were performed. The study was performed unenhanced. COMPARISON: MRI and MRA of the brain dated November 16, 2021. FINDINGS: RIGHT CAROTID ARTERIES: Normal right common carotid artery (CCA). Normal right common carotid bulb. Normal origin of the right internal carotid (ICA) artery without a hemodynamically significant stenosis. Normal visualized cervical portion of the right internal carotid artery. Normal origin of the right external carotid artery (ECA). LEFT CAROTID ARTERIES: Normal left common carotid artery (CCA). Normal left common carotid bulb. Normal origin of the left internal carotid (ICA) artery without a hemodynamically significant stenosis. Normal visualized cervical portion of the left internal carotid artery. Normal origin of the left external carotid artery (ECA). VERTEBRAL ARTERIES: Normal antegrade flow within the bilateral vertebral artery without a hemodynamically significant stenosis. MRI/MRA Neck without Contrast IMPRESSION: Normal bilateral cervical carotid and vertebral arteries. Electronically Signed: Dima Jeffers MD at 10:30 EDT ,
--- NOTE | 2021-11-16 03:46 | MRI_ITS ---
STUDY: MRA OF THE HEAD WITHOUT CONTRAST REASON FOR EXAM: Male, 66 years old. CVA, left weakness, slowed speech TECHNIQUE: 3-D ftwe-fq-urxmum (TOF) imaging was performed with MIPs. The study was performed unenhanced. COMPARISON: MRI of the brain dated November 16, 2021 FINDINGS: Normal bilateral petrous carotid arteries. Normal right cavernous carotid artery with a normal supraclinoid bifurcation. Normal left cavernous carotid artery with a normal supraclinoid bifurcation. Normal right A1 segments of the anterior cerebral artery. Normal left A1 segments of the anterior cerebral artery. Normal intact anterior communicating artery (ACOM). Normal bilateral A2 segments of the anterior cerebral arteries. Normal right M1 and M2 segments of the middle cerebral arteries, with a normal M1 bifurcation. Normal left M1 and M2 segments of the middle cerebral arteries, with a normal M1 bifurcation. Normal right posterior communicating artery (PCOM). Normal left posterior communicating artery (PCOM). Normal bilateral vertebral arteries. Normal basilar artery with a normal basilar bifurcation. The visualized bilateral superior cerebellar (SCA) arteries are normal. Normal bilateral P1, P2 and visualized P3 segments of the posterior cerebral arteries. There is no demonstrated aneurysm of the [place]. There is no major vessel occlusion or hemodynamically significant stenosis. MRI/MRA Head ONLY without Contrast IMPRESSION: 1. There is no demonstrated aneurysm of the [place]. There is no major vessel occlusion or hemodynamically significant stenosis. Electronically Signed: Dima Jeffers MD at 10:29 EDT ,
--- NOTE | 2021-11-16 03:46 | MRI_ITS ---
STUDY: MRI BRAIN WITHOUT CONTRAST REASON FOR EXAM: Male, 66 years old. CVA, left weakness, slowed speech TECHNIQUE: Standardized multiplanar fat and water weighted pulse sequences were obtained. COMPARISON: Head CT dated November 15, 2021 FINDINGS: A small acute infarct is present on the right side of the conrado. No additional acute infarcts are seen. There is mild cerebral atrophy with widening of the extra-axial spaces and ventricular dilatation. There are a limited number of small white matter hyperintensities, distributed throughout the deep white matter tracts of the cerebral hemispheres, consistent with mild chronic white matter ischemic changes. Normal T2* images of the brain without demonstrated susceptibility artifact. There is no demonstrated hemosiderin stain. Normal bilateral basal ganglia. Normal thalami. There is no extra-axial fluid accumulation. Normal flow voids within the major intracranial circulation suggesting patency by spin echo criteria. Normal sella turcica, pituitary gland, infundibular stalk, optic chiasm and hypothalamus. Normal tectal plate and pineal gland. Normal midbrain and medulla. Normal cerebellum. Normal basal cisterns. Normal bilateral temporal bones. Normal bilateral internal auditory canals. No demonstrated orbital abnormality, within the constraints of a routine brain study. Normal visualized paranasal sinuses. Normal calvarium and skull base. Normal visualized soft tissue structures. Normal visualized upper cervical spine. MRI/Brain without Contrast IMPRESSION: 1. Small acute infarct on the right side of the conrado. This is in the distribution of tiny perforating vessels from the basilar artery. 2. Involutional changes of the brain, as described above. N.B. : The above Results were Read Back by Dima Jeffers MD to Manju Fontenot RN, and understanding confirmed on 11/16/2021 10:34:04 (ET). Electronically Signed: Dima Jeffers MD at 10:35 EDT ,
[2021-11-16] MEDS: hydrALAZINE 20 MG/ML Vial 5 MG IV ×3 (04:10→22:37)
[2021-11-16] MEDS: 0.9% Saline Lock 10 ML Syringe IV ×4 (04:10→22:38)
[2021-11-16] MEDS: Potassium Chloride Oral Tablet 20 MEQ PO (04:11)
[2021-11-16] MEDS: Pregabalin 50 MG Capsule 100 MG PO ×3 (06:56→21:30)
[2021-11-16] MEDS: Insulin Lispro 100 UNIT/ML INSULN.PEN SC ×2 (06:57→21:24)
[2021-11-16 07:11] LABS: Bedside Glucose 197 mg/dL (74-106)
[2021-11-16 07:18] LABS: Absolute Lymphocyte Count 1.63 X10^3/uL (0.83-4.51); Absolute Neutrophil Count 5.1 X10^3/uL (2.0-7.7); Basophil# 0.04 X10^3/uL; Basophil% 0.5 % (0-1); Eosinophil# 0.07 X10^3/uL; Hemoglobin 15.1 g/dL (13.0-16.5); Lymphocyte # 1.63 X10^3/ul (0.83-4.51); Lymphocyte % 22.3 % (19-41); Mean Corp Hgb Conc 33.6 g/dL (32-36); Mean Corpuscular Hgb 27.9 pg (27.0-32.0); Mean Platelet Vol. 11.4 fl (6.2-12.0); Monocyte# 0.43 X10^3/uL; Monocyte% 5.9 % (0-10); NRBC Flagged by Analyzer 0 % (0-5); Neutrophil # 5.12 X10^3/uL (2.7-7.7); Neutrophil % 69.9 % (47-70); Platelet Count 228 K/mm3 (150-450); RBC Distribution Width CV 14.9 % (11.6-14.6); RBC Distribution Width SD 45.1 fl (35.1-43.9); Red Blood Count 5.42 M/mm3 (4.6-6.2); White Blood Count 7.3 K/mm3 (4.4-11.0)
[2021-11-16 07:57] LABS: Anion Gap 5 (5-15); BUN 27 mg/dL (7-18); BUN/Creat Ratio 21.1 RATIO (10-20); Calcium,Total 9.4 mg/dL (8.5-10.1); Chloride 110 mmol/L (98-107); Cholesterol 149 mg/dL (200); Creatinine, Serum 1.28 mg/dL (0.70-1.30); EST Glomerular Filtration Rate 60 mL/min (>60); Est Glom Filt Rate - Afr Amer 73 mL/min (>60); Estimated Creatinine Clearance 63.15 ml/min; Glucose 218 mg/dL (74-106); High Density Lipoprotein 32 mg/dL; Potassium 3.5 mmol/L (3.5-5.1); Sodium Level 140 mmol/L (136-145); Triglycerides 231 mg/dL; Very Low Density Lipoprotein 46 mg/dL (5-40)
[2021-11-16 08:11] LABS: Hemoglobin A1c 6.8 % (3.8-5.6)
--- NOTE | 2021-11-16 09:47 | TELEMED_ITS ---
[facility] Telemed has confirmed receipt of a request for visit. This document confirms receipt of the order initiating the consult. To find the results of the consultation, please view the patient's reports for the scanned Telemed Consult.
[2021-11-16] MEDS: Pantoprazole Sodium 20 MG Tablet PO (10:39)
[2021-11-16] MEDS: Glimepiride 2 MG Tablet PO (10:39)
[2021-11-16] MEDS: Paroxetine 20 MG Tablet PO (10:39)
[2021-11-16] MEDS: Clopidogrel Bisulfate 75 MG Tablet PO (10:39)
[2021-11-16] MEDS: hydroCHLOROthiazide 25 MG Tablet PO (10:39)
[2021-11-16] MEDS: LINAGLIPTIN 5 MG TABLET PO (10:39)
[2021-11-16] MEDS: Celecoxib 200 MG Capsule PO (10:39)
[2021-11-16] MEDS: Empagliflozin 25 MG Tablet PO (10:40)
[2021-11-16] MEDS: Lisinopril 20 MG Tablet PO (10:40)
[2021-11-16] MEDS: Propranolol 40 MG Tablet 60 MG PO ×2 (10:40→21:24)
[2021-11-16] MEDS: Fenofibrate 145 MG Tablet PO (10:40)
[2021-11-16] MEDS: Enoxaparin 40 MG/0.4 ML Syringe SC (10:40)
[2021-11-16] MEDS: amLODIPine 10 MG Tablet PO (10:40)
[2021-11-16 10:56] LABS: Bedside Glucose 142 mg/dL (74-106)
--- NOTE | 2021-11-16 11:46 | PCM.HOSP.N ---
Hospitalist Note Mr. Engel is a 66-year-old male who was admitted early this morning with concerns for stroke. On presentation he was complaining of left upper and lower extremity weakness as well as a slowness in his speech. He indicated that his symptoms started approximately 2 days before presentation and the symptoms of overall been improving but when his daughter became aware of the symptoms he was having she convinced him to come to the hospital. He was admitted to PCU. His initial CT in the emergency department showed an old lacunar infarct in the left thalamus with no other significant abnormalities in the brain. The MRI of his brain showed a small acute infarct of the right side of his conrado and the tiny perforating vessels of the basilar artery territory with chronic involutional changes of the brain as well. MRA of the head and neck were overall unimpressive. His echo remains pending at this time. He is already on Plavix and aspirin unable to be added secondary to an allergy. We obtained a hemoglobin A1c which was found to be 6.8. He is currently on oral agents for glycemic control at home. Patient has been maintained on his antihypertensives but his blood pressure still remain elevated I will add 10 mg of lisinopril at this time. I would recommend he obtain a sleep study as an outpatient after discharge.
--- NOTE | 2021-11-16 11:50 | CASEMGMT ---
JUANJOSE CASILLAS assessment: Face to Face with patient for initial transition planning/care coordination assessment. JUANJOSE CASILLAS introduced self and role at [facility], pt voices understanding and consents to assessment. Pt is sitting up in bed in no distress on room air. Pt is A/Ox4 and answers all questions appropriately. Care providers, pharmacy, and demographics verified/updated. Presentation: Pt c/o left sided weakness since noon on Saturday, speech is off per family, able to walk but feels weak Admitting dx: Acute CVA PCP: Denilson Specialists: Devora pain management Preferred Pharmacy: [facility] Insurance: [employer]/MCR A/B Prescription Benefit: [employer] Living Will/HPOA: Pt does not have LW/HPOA but would like to complete at this time. Evette SW aware, voices understanding. LNOK: Nereida Engel, ; Gaby Toro, daughter Living Arrangements: Pt lives with in 1 story home with 3 steps or ramp in and states no concerns at home. Pt is normally independent with ADL's. Transportation: Pt drives self and states no transportation concerns. DME/HHC: Pt has a cane at home and declines need for any further DME. Pt states no hx of HHC or SNF. Pt states no concerns with going home at time of discharge. Pt is retired. Pt smokes a pack of cigarettes daily and does not drink ETOH. Pt states no further concerns/needs. CM to follow for therapy notes and any further discharge planning/needs. Advised pt/family to ask for CM if any further questions/concerns/needs arise, voices understanding. Pt goal: Home Plan: Home, pending therapy angie. Marixa SOW CM
--- NOTE | 2021-11-16 15:43 | CASEMGMT ---
Social Work SW met with pt, and dgt Gaby to discuss advance directives. Pt choosing to complete living will and health care POA naming dgt Gaby Toro. Copy placed on pt chart and original given to pt. Therapy recommending outpatient PT/OT. Pt is agreeable and would like to use [facility] in [place]. JUANJOSE LuqueCM updated. No further SW needs. EMANUEL Oakes
--- NOTE | 2021-11-16 15:47 | CASEMGMT ---
Per therapy, pt would benefit from OP PT/OT and per SW, pt would like [facility] in [place]. Call to [facility] and they state they take pt's insurance and for pt to just bring order in. CM to get script for OP PT/OT, have physician sign and give to pt at discharge. CM to follow for any further discharge planning/needs. Marixa SOW CM
--- NOTE | 2021-11-16 15:48 | CASEMGMT ---
Social Work SW met with pt and completed PHQ9 depression screen. Pt with score of 1/ indicating minimal depression. Pt educated to correlation between stroke and depression. EMANUEL Oakes
[2021-11-16 16:56] LABS: Bedside Glucose 127 mg/dL (74-106)
--- NOTE | 2021-11-16 19:36 | NURSING ---
All patient care and medication administration done by SN Freddie completed under the supervision of this RN.
[2021-11-16] MEDS: traZODone 50 MG Tablet PO (21:24)
[2021-11-16] MEDS: Atorvastatin Calcium 80 MG Tablet PO (21:25)
[2021-11-16 22:15] LABS: Bedside Glucose 179 mg/dL (74-106)
[2021-11-17] VITALS (9 sets, daily range): BP systolic 148–170; BP diastolic 71–81; PULSE 63–83; RESP 16–18; TEMP 36.1–36.4; O2SAT 93–99; BMI 34.0
[2021-11-17] MEDS: hydrALAZINE 20 MG/ML Vial 5 MG IV (05:19)
[2021-11-17] MEDS: Pregabalin 50 MG Capsule 100 MG PO (05:19)
[2021-11-17] MEDS: 0.9% Saline Lock 10 ML Syringe IV (05:20)
[2021-11-17 06:46] LABS: Bedside Glucose 102 mg/dL (74-106)
[2021-11-17] MEDS: Clopidogrel Bisulfate 75 MG Tablet PO (09:37)
[2021-11-17] MEDS: Lisinopril 40 MG Tablet PO (09:37)
[2021-11-17] MEDS: Glimepiride 2 MG Tablet PO (09:38)
[2021-11-17] MEDS: Propranolol 40 MG Tablet 60 MG PO (09:38)
[2021-11-17] MEDS: amLODIPine 10 MG Tablet PO (09:38)
[2021-11-17] MEDS: Pantoprazole Sodium 20 MG Tablet PO (09:38)
[2021-11-17] MEDS: hydroCHLOROthiazide 25 MG Tablet PO (09:38)
[2021-11-17] MEDS: Empagliflozin 25 MG Tablet PO (09:38)
[2021-11-17] MEDS: Fenofibrate 145 MG Tablet PO (09:38)
[2021-11-17] MEDS: Paroxetine 20 MG Tablet PO (09:39)
[2021-11-17] MEDS: LINAGLIPTIN 5 MG TABLET PO (09:39)
[2021-11-17] MEDS: Enoxaparin 40 MG/0.4 ML Syringe SC (09:39)
--- NOTE | 2021-11-17 10:01 | DCINST_ITS ---
Discharge Instructions Diet Discharge Diet: No restrictions Activity Discharge Activity: Return to Normal Activity Weight Bearing Status: Weight bearing as tolerated Dressing / Incision Call your doctor if you observe: Fever of 101 or Higher, Numbness or Tingling, Shortness of breath, Dizziness, Chest pain, Increased palpitations (irregular heartbeat) and Calf discomfort Follow Up Care Please Follow Up With: Primary care provider When: Within the next two weeks. Test Results: Test results from this visit will be discussed in further detail at your follow-up appointment, if applicable. Discharge Plan Admission Admit Date/Time: 11/16/21 10:38 Primary Reason for Your Visit: Stroke Attending Provider: César Mendoza Primary Care Provider: Trey Oreilly Discharge Orders/Prescriptions Prescriptions: New amlodipine 10 mg Tablet 10 mg PO DAILY Qty: 30 RF: 0 lisinopril 40 mg Tablet 40 mg PO DAILY Qty: 30 RF: 0 Continued celecoxib 200 MG capsule 200 mg PO BID RF: 0 hydrocodone-acetaminophen [[place]] 1 EACH tablet 1 ea PO TID PRN (Reason: Pain) RF: 0 propranolol 60 MG tablet 60 mg PO BID RF: 0 clopidogrel 75 MG tablet 75 mg PO DAILY RF: 0 tramadol 50 MG tablet 100 mg PO DAILY RF: 0 paroxetine HCl 20 MG tablet 20 mg PO DAILY RF: 0 metformin 1,000 MG tablet 1,000 mg PO BIDCM RF: 0 hydrochlorothiazide 25 MG tablet 25 mg PO DAILY RF: 0 pregabalin [Lyrica] 100 MG capsule 100 mg PO TID RF: 0 fenofibric acid (choline) [Trilipix] 135 MG capsule,delayed release(DR/EC) 135 mg PO DAILY RF: 0 atorvastatin 80 mg Tablet 80 mg PO DAILY RF: 0 esomeprazole magnesium [Nexium 24HR] 20 mg Capsule,Delayed Release(Dr/Ec) 20 mg PO DAILY RF: 0 Farxiga 10 mg Tablet 10 mg PO DAILY RF: 0 glimepiride 2 mg Tablet 2 mg PO DAILY RF: 0 Januvia 100 mg Tablet 100 mg PO DAILY RF: 0 Discontinued amlodipine-benazepril [Lotrel] 1 CAPSULE capsule 1 capsule PO DAILY RF: 0 Other Ambulatory Orders: 30-Day Event Recorder (Routine) Location: None Selected Ordered By: Harman JASSO Referrals / Follow Up: Denilson,Trey, MD [Primary Care Provider] - Within 2 Weeks Disposition Disposition (needs filled in before D/C Order can be placed): Home, Self Care
[2021-11-17] MEDS: Insulin Lispro 100 UNIT/ML INSULN.PEN SC (11:25)
[2021-11-17 11:31] LABS: Bedside Glucose 268 mg/dL (74-106)
--- NOTE | 2021-11-17 13:16 | PCM.DC.SUM ---
Documented by User: Harman JASSO 11/17/21 13:36 Providers Date of Admission: 11/16/21 Date of Discharge: 11/17/21 Primary Care Physician: Dr. Trey Oreilly MD Reason For Visit: STROKE LIKE SYMPTOMS Diagnosis Discharge Diagnosis (1) Stroke-like symptoms: Status: Acute Code(s): R29.90 - Unspecified symptoms and signs involving the nervous system Medications at Discharge Home Medications celecoxib 200 mg PO BID 07/23/17 clopidogrel 75 mg PO DAILY 07/23/17 fenofibric acid (choline) [Trilipix] 135 mg PO DAILY 07/23/17 hydrochlorothiazide 25 mg PO DAILY 07/23/17 hydrocodone-acetaminophen [[place]] 1 ea PO TID PRN 07/23/17 metformin 1,000 mg PO BIDCM 07/23/17 paroxetine HCl 20 mg PO DAILY 07/23/17 pregabalin [Lyrica] 100 mg PO TID 07/23/17 propranolol 60 mg PO BID 07/23/17 tramadol 100 mg PO DAILY 07/23/17 Farxiga 10 mg PO DAILY 11/15/21 Januvia 100 mg PO DAILY 11/15/21 atorvastatin 80 mg PO DAILY 11/15/21 esomeprazole magnesium [Nexium 24HR] 20 mg PO DAILY 11/15/21 glimepiride 2 mg PO DAILY 11/15/21 amlodipine 10 mg PO DAILY #30 tab 11/17/21 lisinopril 40 mg PO DAILY #30 tab 11/17/21 Hospital Course Procedures 2-D Echocardiogram and Transthoracic echo Summary of Care Provided Minutes Spent on Discharge: 25 Hospital Course: Patient is a 66-year-old male who was admitted to [facility] on the morning of 11/16/2021 for evaluation and management of strokelike symptoms. Patient symptoms on admission included left-sided facial droop, aphasia and left-sided weakness about the upper and lower extremities. Brain MRI was obtained and did demonstrate acute infarct of the right side of the conrado. [facility] teleneurology consult was obtained and recommendations were reviewed. Patient will continue Plavix and statin regimen. Patient not prescribed aspirin due to allergy. Patient was observed on cardiac monitoring throughout admission and no arrhythmia was observed. 30-day event monitor ordered on discharge. No changes to patient's home diabetic regimen will be changed as hemoglobin A1c was 6.8 and diabetes is well controlled. Patient will be initiated on lisinopril 40 mg daily for better BP control. No therapy requirements were assessed by PT/OT. Patient will be discharged and patient is to follow-up with primary care provider within the next 2 weeks. Weight / BMI Weight Weight: 250 lb 14.177 oz Body Mass Index (BMI) 34.0 ABG / Lab / Microbiology Data Result Diagrams: 11/16/21 06:24 11/16/21 06:24 Laboratory: Laboratory Results - last 24 hr 11/16/21 16:49: POC Glucose 127 H 11/16/21 21:21: POC Glucose 179 H 11/17/21 06:40: POC Glucose 102 11/17/21 11:23: POC Glucose 268 H Radiography Diagnostic Testing: Radiology Impression Echocardiogram 11/16/21 03:46 Interpretation Summary The estimated ejection fraction is 65 %. No evidence for diastolic dysfunction. Mild aortic stenosis. Ordering Physician: Dakota Taylor Referring Physician: Trey Oreilly Performed By: Kavita Dukes, RAMA, RVT D/C Instructions Discharge Diet: No restrictions Weight Bearing Status: Weight bearing as tolerated Call your doctor if you observe: Fever of 101 or Higher, Numbness or Tingling, Shortness of breath, Dizziness, Chest pain, Increased palpitations (irregular heartbeat) and Calf discomfort Please Follow Up With: Primary care provider When: Within the next two weeks. Meaningful Use Info Meaningful Use Diagnoses (Choose all that apply): Ischemic CVA CVA Therapy Assessed for PT,OT and/or ST?: Yes Ischemic Stroke Antithrombotic order at d/c?: Yes Dx of Atrial fib/flutter?: No Statins at discharge?: Yes Primary Dx Acute Ischemic CVA?: Yes IV tPA ordered during stay?: No Reason IV t-PA not ordered: Treatment not Indicated Discharge Plan Admission Admit Date/Time: 11/16/21 10:38 Primary Reason for Your Visit: Stroke Attending Provider: César Mendoza Primary Care Provider: Trey Oreilly Discharge Orders/Prescriptions Prescriptions: New amlodipine 10 mg Tablet 10 mg PO DAILY Qty: 30 RF: 0 lisinopril 40 mg Tablet 40 mg PO DAILY Qty: 30 RF: 0 Continued celecoxib 200 MG capsule 200 mg PO BID RF: 0 hydrocodone-acetaminophen [[place]] 1 EACH tablet 1 ea PO TID PRN (Reason: Pain) RF: 0 propranolol 60 MG tablet 60 mg PO BID RF: 0 clopidogrel 75 MG tablet 75 mg PO DAILY RF: 0 tramadol 50 MG tablet 100 mg PO DAILY RF: 0 paroxetine HCl 20 MG tablet 20 mg PO DAILY RF: 0 metformin 1,000 MG tablet 1,000 mg PO BIDCM RF: 0 hydrochlorothiazide 25 MG tablet 25 mg PO DAILY RF: 0 pregabalin [Lyrica] 100 MG capsule 100 mg PO TID RF: 0 fenofibric acid (choline) [Trilipix] 135 MG capsule,delayed release(DR/EC) 135 mg PO DAILY RF: 0 atorvastatin 80 mg Tablet 80 mg PO DAILY RF: 0 esomeprazole magnesium [Nexium 24HR] 20 mg Capsule,Delayed Release(Dr/Ec) 20 mg PO DAILY RF: 0 Farxiga 10 mg Tablet 10 mg PO DAILY RF: 0 glimepiride 2 mg Tablet 2 mg PO DAILY RF: 0 Januvia 100 mg Tablet 100 mg PO DAILY RF: 0 Discontinued amlodipine-benazepril [Lotrel] 1 CAPSULE capsule 1 capsule PO DAILY RF: 0 Other Ambulatory Orders: 30-Day Event Recorder (Routine) Location: None Selected Ordered By: Hraman JASSO Referrals / Follow Up: Trey Oreilly MD [Primary Care Provider] - Within 2 Weeks Disposition Disposition (needs filled in before D/C Order can be placed): Home, Self Care Documented by User: Dr. César Mendoza MD 11/17/21 16:42 Providers Date of Admission: 11/16/21 Reason For Visit: STROKE LIKE SYMPTOMS Medications at Discharge Home Medications celecoxib 200 mg PO BID 07/23/17 clopidogrel 75 mg PO DAILY 07/23/17 fenofibric acid (choline) [Trilipix] 135 mg PO DAILY 07/23/17 hydrochlorothiazide 25 mg PO DAILY 07/23/17 hydrocodone-acetaminophen [[place]] 1 ea PO TID PRN 07/23/17 metformin 1,000 mg PO BIDCM 07/23/17 paroxetine HCl 20 mg PO DAILY 07/23/17 pregabalin [Lyrica] 100 mg PO TID 07/23/17 propranolol 60 mg PO BID 07/23/17 tramadol 100 mg PO DAILY 07/23/17 Farxiga 10 mg PO DAILY 11/15/21 Januvia 100 mg PO DAILY 11/15/21 atorvastatin 80 mg PO DAILY 11/15/21 esomeprazole magnesium [Nexium 24HR] 20 mg PO DAILY 11/15/21 glimepiride 2 mg PO DAILY 11/15/21 amlodipine 10 mg PO DAILY #30 tab 11/17/21 lisinopril 40 mg PO DAILY #30 tab 11/17/21 ABG / Lab / Microbiology Data Result Diagrams: 11/16/21 06:24 11/16/21 06:24 Discharge Plan Admission Admit Date/Time: 11/16/21 10:38 Primary Reason for Your Visit: Stroke Attending Provider: César Mendoza Primary Care Provider: Trey Oreilly Discharge Orders/Prescriptions Prescriptions: New amlodipine 10 mg Tablet 10 mg PO DAILY Qty: 30 RF: 0 lisinopril 40 mg Tablet 40 mg PO DAILY Qty: 30 RF: 0 Continued celecoxib 200 MG capsule 200 mg PO BID RF: 0 hydrocodone-acetaminophen [[place]] 1 EACH tablet 1 ea PO TID PRN (Reason: Pain) RF: 0 propranolol 60 MG tablet 60 mg PO BID RF: 0 clopidogrel 75 MG tablet 75 mg PO DAILY RF: 0 tramadol 50 MG tablet 100 mg PO DAILY RF: 0 paroxetine HCl 20 MG tablet 20 mg PO DAILY RF: 0 metformin 1,000 MG tablet 1,000 mg PO BIDCM RF: 0 hydrochlorothiazide 25 MG tablet 25 mg PO DAILY RF: 0 pregabalin [Lyrica] 100 MG capsule 100 mg PO TID RF: 0 fenofibric acid (choline) [Trilipix] 135 MG capsule,delayed release(DR/EC) 135 mg PO DAILY RF: 0 atorvastatin 80 mg Tablet 80 mg PO DAILY RF: 0 esomeprazole magnesium [Nexium 24HR] 20 mg Capsule,Delayed Release(Dr/Ec) 20 mg PO DAILY RF: 0 Farxiga 10 mg Tablet 10 mg PO DAILY RF: 0 glimepiride 2 mg Tablet 2 mg PO DAILY RF: 0 Januvia 100 mg Tablet 100 mg PO DAILY RF: 0 Discontinued amlodipine-benazepril [Lotrel] 1 CAPSULE capsule 1 capsule PO DAILY RF: 0 Other Ambulatory Orders: 30-Day Event Recorder (Routine) Location: None Selected Ordered By: Harman JASSO Referrals / Follow Up: Trey Oreilly MD [Primary Care Provider] - Within 2 Weeks Disposition Disposition (needs filled in before D/C Order can be placed): Home, Self Care Charges/Coding Addendum Addendum: Dr. Mendoza: I personally reviewed the chart and examined the patient, and agree with the above findings. 66-year-old male presented with left-sided weakness. He was found to have a stroke in his right ocnrado. He states that his symptoms have improved significantly but he still has some numbness and tingling and discoordination. [facility] neurology was consulted recommended blood pressure control, his lisinopril was increased from 20 mg to 40 mg daily. Also continue with Plavix as he is allergic to aspirin and we put him on Lipitor 80 mg daily. He had no A. fib on the monitors while here therefore we will plan for 30-day event monitor. I discussed with him the plan for discharge today and he expressed understanding of the risk benefits going home and would like to go home today. Clinical time spent in all aspects of patient care: 30 minutes Visit Charges Inpatient E&M: [id number] Disch Hosp
== END 2021-11-17 13:23 | disposition home or self-care (01) | DRG 65 ==
LOC: ED 11-16 01:22 → PCU 11-16 03:28
PROVIDERS: Internal Medicine; Admitting Provider Hospitalist; Emergency Provider Student in an Organized Health Care Education/Training Program; PCP Family Medicine; Visit Provider Family Medicine
DX: I63.9 Cerebral infarction, unspecified (principal); G81.94 Hemiplegia, unspecified affecting left nondominant side; E11.65 Type 2 diabetes mellitus with hyperglycemia; F17.210 Nicotine dependence, cigarettes, uncomplicated; F41.9 Anxiety disorder, unspecified; I10 Essential (primary) hypertension; E87.6 Hypokalemia; R47.01 Aphasia; E78.5 Hyperlipidemia, unspecified; R29.810 Facial weakness; R29.700 NIHSS score 0; R29.703 NIHSS score 3; R94.4 Abnormal results of kidney function studies; Z79.02 Long term (current) use of antithrombotics/antiplatelets; Z79.84 Long term (current) use of oral hypoglycemic drugs; Z79.899 Other long term (current) drug therapy
CPT/HCPCS: 36415; 70450; 70544; 70547; 70551; 71045; 80048; 80053; 80061; 81001; 82962; 83036; 84484; 85025; 92610; 93005; 93306; 94762; 97162; 97166; 97530; 97802; 99251; 99284; A4216; G0463

== ENCOUNTER → 2023-12-17 | Outpatient (CLI) | payer MEDICARE, OTHER, SELFPAY ==
--- NOTE | 2023-12-17 10:00 | ASPOS_PTH ---
PATIENT: SIDRA UMANZOR LOC: LAB U#:[id number] AGE/SX: 68/M ROOM: RE12/17/[address]: Dr. Adrian Briseno MD : [id number] BED: DIS: 12/17/2023 SPEC #: [id number] RECD: 12/17/23 10:52 STATUS: JAQUELINE LAMBERT #: [id number] MASOUD: 12/17/23 10:[address]: Adrian Briseno DEPT: CYTOLOGY RECD BY: Chyna Adamson ENTERED: 12/17/23 10:52 SP TYPE: ASP HERE OTHR DR: Dr. Trey Oreilly MD Tissues: Parotid gland, NOS Procedures: Surgery Specimen Level IV Cytology Other Fine Needle Asp on Site HEADER OPERATION: Fine needle aspiration Right parotid mass PRE-OP DIAGNOSIS: Right parotid mass TISSUE SUBMITTED: Right parotid mass, smears and fluid for cytology DIAGNOSIS CYTOLOGY Fine needle aspiration, right parotid mass (smears and cellblock): Oncocytic neoplasm consistent with Warthin tumor. AM/mr 12/18/2023 COMMENT A fine needle aspiration was performed and the specimen is evaluated at the time of FNA by Dr. Peterson. Immediate Evaluation = Oncocytic neoplasm consistent with Warthin tumor. CYTOLOGY STUDY Slides are reviewed. CYTOLOGY GROSS Received is 0.5 ml of red-szymanski fluid labeled with the patient's name, and designated Fine needle aspiration Right parotid mass. 6 imprints and 4 paps are made from the submitted fluid and the rest is added to CytoLyt for cell block preparation. Submitted for cytology study. Mr 12/17/23 TC:5 CPT: 15864,21217,81923,11259
== END | disposition home or self-care (01) ==
PROVIDERS: PCP Family Medicine; Referring Provider Otolaryngology; Visit Provider Otolaryngology
DX: D11.0 Benign neoplasm of parotid gland (principal)
CPT/HCPCS: 10021; 88161; 88305